=== PATIENT | female | born 1955 | race Caucasian/White ===

== ENCOUNTER → 2019-06-30 | Outpatient (CLI) | payer MEDICARE, BC ==
[2019-06-30] VITALS (11 sets, daily range): BP systolic 118–163; BP diastolic 59–73
[~2019-06-30] VITALS: Ht 157.5 cm; Wt 90.7 kg
[~2019-06-30] MED LIST: CEFD300C PO; CHOL10003 PO; HEPARIN for IV BOLUS 10,000 UNIT/10 ML VIAL. ONE; IODIXANOL 320 MG/ML 100 ML VIAL. IART ONE; IODIXANOL 320 MG/ML 100 ML VIAL. ONE; IV 1/2 NORMAL SALINE 1,000 ML IV SCH; LIDOCAINE 1% Multi-Dose 20 ML VIAL. INJ ONE; LIDOCAINE 1% Multi-Dose 20 ML VIAL. ONE; METF850T8 PO; MIDAZOLAM HCL/PF 2 MG/2 ML VIAL. IV ONE; MIDAZOLAM HCL/PF 2 MG/2 ML VIAL. ONE; MOME15CR13 TP; MULT-505 PO; NITROGLYCERIN SUBLINGUAL 0.4 MG BOTTLE OF 25. SL PRN; OMEG1CAP6 PO; PIOG45TA40 PO; RED600CA2 PO; VITA0.4T7 PO; fentaNYL PF VIAL 100 MCG/2 ML VIAL IV ONE; fentaNYL PF VIAL 100 MCG/2 ML VIAL ONE
[2019-06-30 07:53] LABS: RED BLOOD COUNT 4.49 x10^6/uL (3.50-5.40); RED CELL DISTRIBUTION WIDTH 13.6 % (11.5-14.5); WHITE BLOOD COUNT 11.2 x10^3/uL (4.0-11.0)
[2019-06-30 08:00] LABS: CALCIUM 9.2 mg/dL (8.5-10.1); CREATININE 0.7 mg/dL (0.6-1.0); GFR 84.2; POTASSIUM 4.1 mmol/L (3.5-5.1)
[2019-06-30 08:06] LABS: PROTHROMBIN TIME PATIENT 11.9 SEC (11.7-14.0)
--- NOTE | 2019-06-30 10:12 | PDOC ---
MODERATE SEDATION ASSESSMENT RISKS/ALTERNATIVES Risks/Alternatives Risks and alternatives of this type of sedation and procedure discussed with: RISK/ALTERNATIVES: Patient H & P ON CHART H & P H & P on chart and reviewed for co-morbid conditions and appropriate labs. H&P ON CHART: Yes STATUS PREG STATUS ASSESSED: N/A MEDS/ALLERGIES REVIEWED Meds/Allergies Reviewed Medications and Allergies including time and route of recently administered narcotics and sedatives. MEDS/ALLERGIES REVIEWED: Yes ASA RATING ASA RATING: II AIRWAY ASSESSMENT Airway Assessment Airway patency, oral function limitations, presence of caps, crowns, dentures, partials, and ability to extend neck assessed. AIRWAY ASSESSMENT: Yes MALLAMPATI SCORE MALLAMPATI SCORE: II PRE-SEDATION ASSESSMENT PRE-SEDATION ASSESSMENT: Yes SALINA HARPER MD Jun 30, 2019 10:12
--- NOTE | 2019-06-30 10:22 | CARD ---
MR#: [id number] Date of Study: 06/30/2019 Ordering Physician: SALINA HARPER, Referring Physician: SALINA HARPER Tech: BENSON PADILLA RTR APPROVED REPORT Patient StatusOUT-PATIENT Jewelry Technician: BENSON PADILLA RTR Procedure(s) performed: Aortogram with bilateral lower extremity runoff peripheral artery disease wit h claudication MODERATE SEDATION TIME: 31 MINS FLUORO TIME: 3.9 MIN DOSE: 153 GYCM2 CONTRAST: 84 INDICATION FOR PROCEDURE The indication(s) include : Claudication and abnormal arterial duplex scan. PROCEDURE NARRATIVE After explaining the risks, benefits and alternative options, informed consent was obtained from eric ent. Patient was brought to the cardiac [facility] and her left groin was prepped and draped in the usu al fashion. 20 mL of 2% lidocaine was infiltrated into the skin and subcutaneous tissues for local an esthesia. Arterial access was obtained in the left common femoral artery and 6 Panamanian 23 cm bright ti p sheath was inserted. A 5 Panamanian pigtail catheter was used to perform aortogram with bilateral lower extremity runoff. Patient tolerated the procedure well. Hemostasis was achieved using Angio-Seal. Th ere were no immediate complications. The following findings were noted. FINDINGS 1. 30-40% stenosis in the descending aorta without any significant gradient across the lesion. Infra renal abdominal aortic aneurysm was noted. 2. No significant stenosis involving bilateral common and external iliac arteries. 3. No significant stenosis involving bilateral common femoral arteries. 4. Minimal luminal irregularities without any significant stenosis in bilateral superficial femoral arteries. 5. No significant stenosis involving bilateral popliteal arteries. 6. There is two-vessel runoff below the knee right lower extremity. The posterior tibial artery show ed chronic total occlusion in the proximal to midsegment. 7. There is one vessel runoff below the knee left lower extremity with chronic total occlusion of le ft posterior tibial artery in the proximal segment and anterior tibial artery in the proximal to mids egment. Conclusion Below the knee peripheral vascular disease as noted above without any major vascular stenosis needing intervention. Infrarenal abdominal aortic aneurysm. Recommendations Vascular risk factor modification and regular exercise regimen Consider CTA for exact measurement of the abdominal aortic aneurysm size. Signed by : Salina Harper, Electronically Approved : 06/30/2019 10:22:30
--- NOTE | 2019-06-30 12:34 | NUR ---
Discharge Note: HANNAH WHITTAKER Discharge instructions and discharge home medications reviewed with Patient and a copy given. All questions have been answered and understanding verbalized. The following instructions and handouts were given: Follow up appointment with Dr. Guerrero on 07/15/19 @ 3769. Education about smoking cessation, moderate sedation, and groin site care. Discontinued lines and drains: right forarm IV removed and dressing applied. Patient discharged home, accompanied by friend.
--- NOTE | 2019-06-30 13:53 | CARD ---
MR#: [id number] Date of Study: 06/30/2019 Ordering Physician: SALINA GUERRERO, Referring Physician: SALINA GUERRERO Tech: Gina Chahal RDCS APPROVED REPORT EXAM: Two-dimensional and M-mode echocardiogram with Doppler and color Doppler. Other Information Quality : Technically LimitedHR: 98bpm Rhythm : NSRTechnically limited study due to body habitus. INDICATION PAD 2D DIMENSIONS RVDd3.0 (2.9-3.5cm)Left Atrium(2D)3.1 (1.6-4.0cm) IVSd1.1 (0.7-1.1cm)Aortic Root(2D)2.5 (2.0-3.7cm) LVDd4.2 (3.9-5.9cm)LVOT Diameter2.0 (1.8-2.4cm) PWd1.2 (0.7-1.1cm)LVDs2.8 (2.5-4.0cm) FS (%) 32.8 %SV47.3 ml LVEF(%)61.6 (>50%) M-Mode DIMENSIONS Left Atrium(MM)3.21 (2.5-4.0cm)Aortic Root2.89 (2.2-3.7cm) Aortic Valve AoV Peak Javier.130.4cm/sAoV VTI25.9cm AO Peak GR.6.8mmHgLVOT Peak Javier.118.1cm/s AO Mean GR.4mmHgAVA (VMAX)2.92cm2 MAYITO (VTI)2.90cm2 Mitral Valve MV E Xvwykmwf18.4cm/sMV DECEL EJUY71rf MV A Wczcedbi47.1cm/sE/A Ratio0.8 Pulmonary Valve PV Peak Ywmmwvws74.9cm/s LEFT VENTRICLE The left ventricle is normal size. There is mild concentric left ventricular hypertrophy. The left ve ntricular systolic function is normal. The Ejection Fraction is 60-65%. There is normal LV segmental wall motion. Transmitral Doppler flow pattern is Grade I-abnormal relaxation pattern. RIGHT VENTRICLE The right ventricle is normal size. There is normal right ventricular wall thickness. The right ventr icular systolic function is normal. ATRIA The left atrium size is normal. The right atrium size is normal. The interatrial septum is intact wit h no evidence for an atrial septal defect or patent foramen ovale as noted on 2-D or Doppler imaging. AORTIC VALVE The aortic valve is probably trileaflet. The aortic valve is not well visualized. Doppler and Color F low revealed no significant aortic regurgitation. There is no significant aortic valvular stenosis. MITRAL VALVE The mitral valve is normal in structure and function. There is no evidence of mitral valve prolapse. There is no mitral valve stenosis. Doppler and Color-flow revealed trace mitral regurgitation. TRICUSPID VALVE The tricuspid valve is normal in structure and function. Doppler and Color Flow revealed no tricuspid valve regurgitation noted. There is no tricuspid valve prolapse or vegetation. There is no tricuspid valve stenosis. PULMONIC VALVE The pulmonic valve is not well visualized. GREAT VESSELS The aortic root is normal in size. The ascending aorta is normal in size. The IVC is normal in size a nd collapses >50% with inspiration. PERICARDIAL EFFUSION There is no evidence of significant pericardial effusion. Critical Notification Critical Value: No <Conclusion> The left ventricular systolic function is normal. The Ejection Fraction is 60-65%. There is normal LV segmental wall motion. Transmitral Doppler flow pattern is Grade I-abnormal relaxation pattern. Doppler and Color-flow revealed trace mitral regurgitation. There is no evidence of significant pericardial effusion. Signed by : Salina Guerrero, Electronically Approved : 06/30/2019 13:52:34
== END ==
LOC: CCL 07:27
PROVIDERS: ATTEND Internal Medicine Cardiovascular Disease
DX: I71.4 Abdominal aortic aneurysm, without rupture (principal); I70.213 Atherosclerosis of native arteries of extremities with intermittent claudication, bilateral legs
CPT/HCPCS: 36200; 36415; 75630; 80048; 85027; 85610; 93306; 99152; 99153; C1760; C1769; C1894; J1644; J2250; J3010; Q9967; G0269; C1771

== ENCOUNTER 2019-07-27 18:15 | Inpatient (IN) | payer MEDICARE, BC ==
[~2019-07-27] VITALS: Ht 157.5 cm; Wt 98.0 kg
[~2019-07-27 18:15] MED LIST changes: -CEFD300C PO; -HEPARIN for IV BOLUS 10,000 UNIT/10 ML VIAL. ONE; -IODIXANOL 320 MG/ML 100 ML VIAL. IART ONE; -IODIXANOL 320 MG/ML 100 ML VIAL. ONE; -IV 1/2 NORMAL SALINE 1,000 ML IV SCH; -LIDOCAINE 1% Multi-Dose 20 ML VIAL. INJ ONE; -LIDOCAINE 1% Multi-Dose 20 ML VIAL. ONE; -MIDAZOLAM HCL/PF 2 MG/2 ML VIAL. IV ONE; -MIDAZOLAM HCL/PF 2 MG/2 ML VIAL. ONE; -MOME15CR13 TP; -NITROGLYCERIN SUBLINGUAL 0.4 MG BOTTLE OF 25. SL PRN; -fentaNYL PF VIAL 100 MCG/2 ML VIAL IV ONE; -fentaNYL PF VIAL 100 MCG/2 ML VIAL ONE
[2019-07-27] MEDS ORDERED: VANCOMYCIN PER PHARMACY MC ONE (19:00)
--- NOTE | 2019-07-27 19:04 | PHYS DOC ---
Adult General Chief Complaint Chief Complaint: CELLULITIS HPI HPI Patient is a 64-year-old female who presents with report of diffuse rash as well as redness, swelling and pain to her right lower leg. Patient has been treated with Bactrim for the last week for cellulitis but it is not improving. Patient states that she noted the diffuse rash a little bit before starting the Bactrim but it has gotten much worse, covering the majority of her body. She denies any chest pain or shortness of breath. She rates pain in that lower leg has moderate. She states that nothing is improving her symptoms.[] Review of Systems Review of Systems Constitutional: Denies fever or chills [] Respiratory: Denies cough or shortness of breath [] Cardiovascular: No additional information not addressed in HPI [] Musculoskeletal: Positive right lower leg swelling and pain [] Integument: Positive diffuse erythematous, macular rash. Right lower leg demonstrates soft tissue swelling, warmth and erythema, consistent with cellulitis[] Neurologic: Denies headache, focal weakness or sensory changes [] All other systems were reviewed and found to be within normal limits, except as documented in this note. Current Medications Current Medications Current Medications Medications (Trade) Dose Ordered Sig/Erin Start Time Stop Time Status Last Admin Dose Admin Vancomycin HCl (Vanco Per Pharmacy) 1 each 1X ONCE 07/27/19 19:00 07/27/19 19:06 DC Vancomycin HCl 2 gm/Sodium Chloride 500 ml @ 250 mls/hr 1X ONCE 07/27/19 19:30 07/27/19 21:29 07/27/19 19:35 250 MLS/HR Allergies Allergies Allergies Coded Allergies Type Severity Reaction Last Updated Verified Penicillins Allergy Unknown 06/30/19 Yes Tetanus Vaccines and Toxoid Allergy Unknown 06/30/19 Yes Physical Exam Physical Exam Constitutional: Well developed, well nourished, no acute distress, non-toxic appearance. [] HENT: Normocephalic, atraumatic, bilateral external ears normal, oropharynx moist, no oral exudates, nose normal. [] Eyes: PERRLA, EOMI, conjunctiva normal, no discharge. [] Neck: Normal range of motion, no tenderness, supple, no stridor. [] Cardiovascular: Regular rate and rhythm[] Lungs & Thorax: Bilateral breath sounds clear to auscultation [] Abdomen: Bowel sounds normal, soft, no tenderness. [] Skin: Warm, dry, diffuse erythematous macular rash that blanches. Right lower leg demonstrates soft tissue swelling, warmness and erythema consistent with cellulitis. [] Extremities: No cyanosis, no clubbing, ROM intact. [] Neurologic: Alert and oriented X 3, no focal deficits noted. [] Current Patient Data Vital Signs Vital Signs Date Time Temp Pulse Resp B/P (MAP) Pulse Ox O2 Delivery O2 Flow Rate FiO2 07/27/19 18:42 98.4 112 18 168/72 (104) 93 Room Air 98.4 Lab Values Laboratory Tests Test 07/27/19 19:05 White Blood Count 8.3 x10^3/uL (4.0-11.0) Red Blood Count 3.99 x10^6/uL (3.50-5.40) Hemoglobin 13.2 g/dL (12.0-15.5) Hematocrit 38.6 % (36.0-47.0) Mean Corpuscular Volume 97 fL (79-100) Mean Corpuscular Hemoglobin 33 pg (25-35) Mean Corpuscular Hemoglobin Concent 34 g/dL (31-37) Red Cell Distribution Width 13.2 % (11.5-14.5) Platelet Count 261 x10^3/uL (140-400) Neutrophils (%) (Auto) 62 % (31-73) Lymphocytes (%) (Auto) 24 % (24-48) Monocytes (%) (Auto) 9 % (0-9) Eosinophils (%) (Auto) 5 % (0-3) H Basophils (%) (Auto) 1 % (0-3) Neutrophils # (Auto) 5.1 x10^3/uL (1.8-7.7) Lymphocytes # (Auto) 2.0 x10^3/uL (1.0-4.8) Monocytes # (Auto) 0.7 x10^3/uL (0.0-1.1) Eosinophils # (Auto) 0.4 x10^3/uL (0.0-0.7) Basophils # (Auto) 0.1 x10^3/uL (0.0-0.2) Erythrocyte Sedimentation Rate 38 (0-25) H Sodium Level 142 mmol/L (136-145) Potassium Level 4.1 mmol/L (3.5-5.1) Chloride Level 102 mmol/L (98-107) Carbon Dioxide Level 27 mmol/L (21-32) Anion Gap 13 (6-14) Blood Urea Nitrogen 14 mg/dL (7-20) Creatinine 1.1 mg/dL (0.6-1.0) H Estimated GFR (Cockcroft-Gault) 50.0 BUN/Creatinine Ratio 13 (6-20) Glucose Level 178 mg/dL (70-99) H Lactic Acid Level 2.1 mmol/L (0.4-2.0) H Calcium Level 9.5 mg/dL (8.5-10.1) Total Bilirubin 0.2 mg/dL (0.2-1.0) Aspartate Amino Transferase (AST) 35 U/L (15-37) Alanine Aminotransferase (ALT) 65 U/L (14-59) H Alkaline Phosphatase 95 U/L (46-116) C-Reactive Protein, Quantitative 3.0 mg/L (0-3.3) Total Protein 7.2 g/dL (6.4-8.2) Albumin 3.6 g/dL (3.4-5.0) Albumin/Globulin Ratio 1.0 (1.0-1.7) Laboratory Tests 07/27/19 19:05 Laboratory Tests 07/27/19 19:05 EKG EKG [] Radiology/Procedures Radiology/Procedures [] Course & Med Decision Making Course & Med Decision Making Pertinent Labs and Imaging studies reviewed. (See chart for details) [] Dragon Disclaimer Dragon Disclaimer This electronic medical record was generated, in whole or in part, using a voice recognition dictation system. Departure Departure Impression: Primary Impression: Cellulitis of right lower leg Disposition: ADMITTED INPATIENT Admitting Physician: LISET (Dr. Lay) Condition: IMPROVED Referrals: JODI CROCKER (PCP) LORRAINE PUTNAM Jr. DO Jul 27, 2019 19:04
[2019-07-27 19:18] LABS: BASO # 0.1 x10^3/uL (0.0-0.2); BASO % 1 % (0-3); EOS # 0.4 x10^3/uL (0.0-0.7); EOS % 5 % (0-3); HEMATOCRIT 38.6 % (36.0-47.0); HEMOGLOBIN 13.2 g/dL (12.0-15.5); LYMPH % 24 % (24-48); MEAN CORPUSCULAR HEMOGLOBIN 33 pg (25-35); MEAN CORPUSCULAR HGB CONC 34 g/dL (31-37); MEAN CORPUSCULAR VOLUME 97 fL (79-100); MONO # 0.7 x10^3/uL (0.0-1.1); MONO % 9 % (0-9); NEUT # 5.1 x10^3/uL (1.8-7.7); NEUT % 62 % (31-73); PLATELET COUNT 261 x10^3/uL (140-400); RED BLOOD COUNT 3.99 x10^6/uL (3.50-5.40); RED CELL DISTRIBUTION WIDTH 13.2 % (11.5-14.5); WHITE BLOOD COUNT 8.3 x10^3/uL (4.0-11.0)
[2019-07-27] MEDS ORDERED: VANCOMYCIN 2 GM in IV NORMAL SALINE 500ML BAG 500 ML IV ONE (19:30)
[2019-07-27 20:02] LABS: CALCIUM 9.5 mg/dL (8.5-10.1); CREATININE 1.1 mg/dL (0.6-1.0); POTASSIUM 4.1 mmol/L (3.5-5.1)
[2019-07-27 20:08] LABS: ALBUMIN 3.6 g/dL (3.4-5.0); TOTAL BILIRUBIN 0.2 mg/dL (0.2-1.0); TOTAL PROTEIN 7.2 g/dL (6.4-8.2)
[2019-07-27] MEDS ORDERED: ONDANSETRON PF 4 MG/2 ML VIAL. IV PRN (21:15)
[2019-07-27] MEDS ORDERED: MORPHINE SULFATE 4 MG/ML VIAL. IV PRN (21:15)
[2019-07-27 21:56] LABS: BILIRUBIN,URINE SMALL (NEG); COLOR,URINE YELLOW; NITRITE,URINE NEGATIVE (NEG); PH,URINE 5.5; PROTEIN,URINE NEGATIVE (NEG-TRACE)
--- NOTE | 2019-07-27 21:58 | NUR ---
The patient, HANNAH WHITTAKER, 64 y/o, F admitted by KEIRY LY III, DO, was given written information regarding hospital policies, unit procedures and contact persons. Valuables were checked and left with her.
[2019-07-27 22:02] LABS: CLARITY,URINE CLEAR; SQUAMOUS EPITHELIAL CELL,UR MOD /LPF
[2019-07-27 22:03] LABS: BACTERIA,URINE FEW /HPF (0-FEW)
[2019-07-27 22:30] VITALS: BP 125/56
[2019-07-28] MEDS ORDERED: DEXTROSE 50% 25 GM / 50ML DISP.SYRIN. IV PRN ×2 (00:15→08:45)
[2019-07-28 03:00] VITALS: BP 124/82
[2019-07-28 04:58] LABS: BASO # 0.1 x10^3/uL (0.0-0.2); BASO % 1 % (0-3); EOS # 0.4 x10^3/uL (0.0-0.7); EOS % 5 % (0-3); HEMATOCRIT 37.4 % (36.0-47.0); HEMOGLOBIN 12.6 g/dL (12.0-15.5); LYMPH # 1.9 x10^3/uL (1.0-4.8); LYMPH % 25 % (24-48); MEAN CORPUSCULAR HEMOGLOBIN 33 pg (25-35); MEAN CORPUSCULAR HGB CONC 34 g/dL (31-37); MEAN CORPUSCULAR VOLUME 98 fL (79-100); MONO # 0.8 x10^3/uL (0.0-1.1); MONO % 11 % (0-9); NEUT # 4.4 x10^3/uL (1.8-7.7); NEUT % 58 % (31-73); PLATELET COUNT 253 x10^3/uL (140-400); RED BLOOD COUNT 3.82 x10^6/uL (3.50-5.40); RED CELL DISTRIBUTION WIDTH 13.6 % (11.5-14.5); WHITE BLOOD COUNT 7.5 x10^3/uL (4.0-11.0)
[2019-07-28 05:03] LABS: CALCIUM 8.6 mg/dL (8.5-10.1); CREATININE 0.8 mg/dL (0.6-1.0); GFR 72.2; POTASSIUM 4.2 mmol/L (3.5-5.1)
[2019-07-28 07:00] VITALS: BP 121/46
[2019-07-28] MEDS ORDERED: INSULIN LISPRO 300 UNITS/3 ML VIAL. SQ SCH (08:00)
--- NOTE | 2019-07-28 08:34 | PDOC1 ---
History and Physical Date of Admission Date of Admission DATE: 07/28/19 TIME: 08:31 Identification/Chief Complaint Chief Complaint Rash Source Source: Patient History of Present Illness History of Present Illness Ms Lockett 64-year-old female w/ PMHx smoker, DM2, HTN, psoriasis who presents with report of diffuse rash as well as redness, swelling and pain to her right lower leg. Patient has been treated with Bactrim for the last week for cellulitis but it is not improving. Patient states that she noted the diffuse rash a little bit before starting the Bactrim but it has gotten much worse, covering the majority of her body. She denies any chest pain or shortness of breath. She rates pain in that lower leg has moderate. She states that nothing is improving her symptoms She feels that her psoriasis has flared up on her right ankle and she has been pruritic and the redness and warmth appeared last week and she was placed on bactrim after which she developed a fine macular rash that is not pruritic. She had Cr 1.1, lactate 2.1 and AST slightly elevated Past Medical History Cardiovascular: HTN, Hyperlipidemia Pulmonary: No pertinent hx GI: No pertinent hx Heme/Onc: No pertinent hx Hepatobiliary: No pertinent hx Psych: No pertinent hx Rheumatologic: No pertinent hx Infectious disease: No pertinent hx ENT: No pertinent hx Renal/: No pertinent hx Endocrine: Diabetes Dermatology: No pertinent hx Past Surgical History Past Surgical History: No pertinent history Family History Family History: High Cholestrol, Hypertension Social History Smoke: 2 packs per day ALCOHOL: none Drugs: None Current Problem List Problem List Problems Medical Problems: (1) Cellulitis of right lower leg Status: Acute Current Medications Current Medications Current Medications Vancomycin HCl (Vanco Per Pharmacy) 1 each 1X ONCE MC ; Start 07/27/19 at 19:00; Stop 07/27/19 at 19:06; Status DC Vancomycin HCl 2 gm/Sodium Chloride 500 ml @ 250 mls/hr 1X ONCE IV Last administered on 07/27/19at 19:35; Start 07/27/19 at 19:30; Stop 07/27/19 at 21:29; Status DC Ondansetron HCl (Zofran) 4 mg PRN Q8HRS PRN IV NAUSEA/VOMITING 1ST CHOICE; Start 07/27/19 at 21:15; Stop 07/28/19 at 21:14 Morphine Sulfate (Morphine Sulfate) 4 mg PRN Q2HR PRN IV SEVERE PAIN 7-10; Start 07/27/19 at 21:15; Stop 07/28/19 at 21:14 Nicotine (Nicoderm Cq 21mg) 1 patch PRN DAILY PRN TD SMOKING CESSATION; Start 07/28/19 at 00:15 Nicotine Polacrilex (Nicorette Gum) 1 each PRN Q1HR PRN BC SMOKING CESSATION; Start 07/28/19 at 00:15 Insulin Human Lispro (HumaLOG) 0-5 UNITS TIDWMEALS SQ ; Start 07/28/19 at 08:00 Dextrose (Dextrose 50%-Water Syringe) 12.5 gm PRN Q15MIN PRN IV SEE COMMENTS; Start 07/28/19 at 00:15 Active Scripts Active Reported Fish Oil 1,000 Mg Capsule ([place]-3 Fatty Acids/Fish Oil) 1 Each Capsule 1 Each PO BID Red Yeast Rice 600 Mg Capsule 600 Mg PO DAILY Vitamin B-50 Complex Tablet (Vitamin B Complex/Folic Acid) 0.4 Mg Tablet 0.4 Mg PO DAILY Vitamin D3 (Cholecalciferol (Vitamin D3)) 1,000 Unit Tablet 2 Tab PO BID Once Daily (Multivitamin) 1 Each Tablet 1 Each PO DAILY Actos (Pioglitazone Hcl) 45 Mg Tablet 1 Tab PO DAILY Metformin Hcl 850 Mg Tablet 850 Mg PO TID Allergies Allergies: Coded Allergies: Penicillins (Verified Allergy, Intermediate, 07/27/19) Tetanus Vaccines and Toxoid (Verified Allergy, Intermediate, 07/27/19) ROS General: YES: Fatigue, Malaise; No: Chills, Night Sweats, Appetite, Other PSYCHOLOGICAL ROS: No: Anxiety, Behavioral Disorder, Concentration difficultie, Decreased libido, Depression, Disorientation, Hallucinations, Hostility, Irritablity, Memory difficulties, Mood Swings, Obsessive thoughts, Physical abuse, Sexual abuse, Sleep disturbances, Suicidal ideation, Other Eyes: No Blurry vision, No Decreased vision, No Double vision, No Dry eyes, No Excessive tearing, No Eye Pain, No Itchy Eyes, No Loss of vision, No Photophobia, No Scotomata, No Uses contacts, No Uses glasses, No Other HEENT: No: Heacaches, Visual Changes, Hearing change, Nasal congestion, Nasal discharge, Oral lesions, Sinus pain, Sore Throat, Epistaxis, Sneezing, Snoring, Tinnitus, Vertigo, Vocal changes, Other ALLERGY AND IMMUNOLOGY: No: Hives, Insect Bite Sensitivity, Itchy/Watery Eyes, Nasal Congestion, Post Nasal Drip, Seasonal Allergies, Other Hematological and Lymphatic: No: Bleeding Problems, Blood Clots, Blood Transfusions, Brusing, Night Sweats, Pallor, Swollen Lymph Nodes, Other ENDOCRINE: No: Breast Changes, Galactorrhea, Hair Pattern Changes, Hot Flashes, Malaise/lethargy, Mood Swings, Palpitations, Polydipsia/polyuria, Skin Changes, Temperature Intolerance, Unexpected Weight Changes, Other Breast: No New/Changing Breast Lumps, No Nipple changes, No Nipple discharge, No Other Respiratory: No: Cough, Hemoptysis, Orthopnea, Pleuritic Pain, Shortness of breath, SOB with excertion, Sputum Changes, Stridor, Tachypnea, Wheezing, Other Cardiovascular: No Chest Pain, No Palpitations, No Orthopnea, No Paroxysmal Noc. Dyspnea, No Edema, No Lt Headedness, No Other Gastrointestinal: No Nausea, No Vomiting, No Abdominal Pain, No Diarrhea, No Constipation, No Melena, No Hematochezia, No Other Genitourinary: No Dysuria, No Frequency, No Incontinence, No Hematuria, No Retention, No Discharge, No Urgency, No Pain, No Flank Pain, No Other, No , No , No , No , No , No , No Musculoskeletal: No Gait Disturbance, No Joint Pain, No Joint Stiffness, No Joint Swelling, No Muscle Pain, No Muscular Weakness, No Pain In:, No Swelling In:, No Other Neurological: No Behavorial Changes, No Bowel/Bladder ControlChng, No Confusion, No Dizziness, No Gait Disturbance, No Headaches, No Impaired Coord/balance, No Memory Loss, No Numbness/Tingling, No Seizures, No Speech Problems, No Tremors, No Visual Changes, No Weakness, No Other Skin: Yes Dry Skin, Yes Rash; No Eczema, No Hair Changes, No Lumps, No Mole Changes, No Mottling, No Nail Changes, No Pruritus, No Skin Lesion Changes, No Other, No Acne Physical Exam General: Alert, Oriented X3, Cooperative, No acute distress HEENT: Atraumatic, PERRLA, EOMI, Mucous membr. moist/pink Lungs: Clear to auscultation, Normal air movement Heart: S1S2, RRR, no thrills, no rubs, no gallops, no murmurs Abdomen: Normal bowel sounds, Soft, No tenderness, No hepatosplenomegaly, No masses Skin: Other (Macular rash on bilateral LE. Right ankle with diffuse red rash, warm, skin blistered.) Neuro: Normal gait, Normal speech, Strength at 5/5 X4 ext, Normal tone, Sensation intact, Cranial nerves 3-12 NL, Reflexes 2+ Psych/Mental Status: Mental status NL, Mood NL Vitals Vitals Vital Signs Date Time Temp Pulse Resp B/P (MAP) Pulse Ox O2 Delivery O2 Flow Rate FiO2 07/28/19 07:00 97.7 84 18 121/46 (71) 92 97.7 07/27/19 22:00 Room Air Labs Labs Laboratory Tests Test 07/27/19 19:05 07/27/19 21:45 07/27/19 22:25 07/28/19 04:00 White Blood Count 8.3 x10^3/uL (4.0-11.0) 7.5 x10^3/uL (4.0-11.0) Red Blood Count 3.99 x10^6/uL (3.50-5.40) 3.82 x10^6/uL (3.50-5.40) Hemoglobin 13.2 g/dL (12.0-15.5) 12.6 g/dL (12.0-15.5) Hematocrit 38.6 % (36.0-47.0) 37.4 % (36.0-47.0) Mean Corpuscular Volume 97 fL (79-100) 98 fL (79-100) Mean Corpuscular Hemoglobin 33 pg (25-35) 33 pg (25-35) Mean Corpuscular Hemoglobin Concent 34 g/dL (31-37) 34 g/dL (31-37) Red Cell Distribution Width 13.2 % (11.5-14.5) 13.6 % (11.5-14.5) Platelet Count 261 x10^3/uL (140-400) 253 x10^3/uL (140-400) Neutrophils (%) (Auto) 62 % (31-73) 58 % (31-73) Lymphocytes (%) (Auto) 24 % (24-48) 25 % (24-48) Monocytes (%) (Auto) 9 % (0-9) 11 % (0-9) Eosinophils (%) (Auto) 5 % (0-3) 5 % (0-3) Basophils (%) (Auto) 1 % (0-3) 1 % (0-3) Neutrophils # (Auto) 5.1 x10^3/uL (1.8-7.7) 4.4 x10^3/uL (1.8-7.7) Lymphocytes # (Auto) 2.0 x10^3/uL (1.0-4.8) 1.9 x10^3/uL (1.0-4.8) Monocytes # (Auto) 0.7 x10^3/uL (0.0-1.1) 0.8 x10^3/uL (0.0-1.1) Eosinophils # (Auto) 0.4 x10^3/uL (0.0-0.7) 0.4 x10^3/uL (0.0-0.7) Basophils # (Auto) 0.1 x10^3/uL (0.0-0.2) 0.1 x10^3/uL (0.0-0.2) Erythrocyte Sedimentation Rate 38 (0-25) Sodium Level 142 mmol/L (136-145) 144 mmol/L (136-145) Potassium Level 4.1 mmol/L (3.5-5.1) 4.2 mmol/L (3.5-5.1) Chloride Level 102 mmol/L (98-107) 109 mmol/L (98-107) Carbon Dioxide Level 27 mmol/L (21-32) 26 mmol/L (21-32) Anion Gap 13 (6-14) 9 (6-14) Blood Urea Nitrogen 14 mg/dL (7-20) 16 mg/dL (7-20) Creatinine 1.1 mg/dL (0.6-1.0) 0.8 mg/dL (0.6-1.0) Estimated GFR (Cockcroft-Gault) 50.0 72.2 BUN/Creatinine Ratio 13 (6-20) Glucose Level 178 mg/dL (70-99) 140 mg/dL (70-99) Lactic Acid Level 2.1 mmol/L (0.4-2.0) 1.5 mmol/L (0.4-2.0) Calcium Level 9.5 mg/dL (8.5-10.1) 8.6 mg/dL (8.5-10.1) Total Bilirubin 0.2 mg/dL (0.2-1.0) Aspartate Amino Transf (AST/SGOT) 35 U/L (15-37) Alanine Aminotransferase (ALT/SGPT) 65 U/L (14-59) Alkaline Phosphatase 95 U/L (46-116) C-Reactive Protein, Quantitative 3.0 mg/L (0-3.3) Total Protein 7.2 g/dL (6.4-8.2) Albumin 3.6 g/dL (3.4-5.0) Albumin/Globulin Ratio 1.0 (1.0-1.7) Urine Collection Type Unknown Urine Color Yellow Urine Clarity Clear Urine pH 5.5 Urine Specific [place] 1.025 Urine Protein Negative mg/dL (NEG-TRACE) Urine Glucose (UA) Negative mg/dL (NEG) Urine Ketones (Stick) Negative mg/dL (NEG) Urine Blood Negative (NEG) Urine Nitrite Negative (NEG) Urine Bilirubin Small (NEG) Urine Urobilinogen Dipstick 1.0 mg/dL (0.2 mg/dL) Urine Leukocyte Esterase Small (NEG) Urine RBC 6-10 /HPF (0-2) Urine WBC 11-20 /HPF (0-4) Urine Squamous Epithelial Cells Mod /LPF Urine Bacteria Few /HPF (0-FEW) Urine Mucus Mod /LPF Test 07/28/19 08:12 Glucose (Fingerstick) 140 mg/dL (70-99) Laboratory Tests Test 07/27/19 19:05 07/27/19 21:45 07/27/19 22:25 07/28/19 04:00 White Blood Count 8.3 x10^3/uL (4.0-11.0) 7.5 x10^3/uL (4.0-11.0) Red Blood Count 3.99 x10^6/uL (3.50-5.40) 3.82 x10^6/uL (3.50-5.40) Hemoglobin 13.2 g/dL (12.0-15.5) 12.6 g/dL (12.0-15.5) Hematocrit 38.6 % (36.0-47.0) 37.4 % (36.0-47.0) Mean Corpuscular Volume 97 fL (79-100) 98 fL (79-100) Mean Corpuscular Hemoglobin 33 pg (25-35) 33 pg (25-35) Mean Corpuscular Hemoglobin Concent 34 g/dL (31-37) 34 g/dL (31-37) Red Cell Distribution Width 13.2 % (11.5-14.5) 13.6 % (11.5-14.5) Platelet Count 261 x10^3/uL (140-400) 253 x10^3/uL (140-400) Neutrophils (%) (Auto) 62 % (31-73) 58 % (31-73) Lymphocytes (%) (Auto) 24 % (24-48) 25 % (24-48) Monocytes (%) (Auto) 9 % (0-9) 11 % (0-9) Eosinophils (%) (Auto) 5 % (0-3) 5 % (0-3) Basophils (%) (Auto) 1 % (0-3) 1 % (0-3) Neutrophils # (Auto) 5.1 x10^3/uL (1.8-7.7) 4.4 x10^3/uL (1.8-7.7) Lymphocytes # (Auto) 2.0 x10^3/uL (1.0-4.8) 1.9 x10^3/uL (1.0-4.8) Monocytes # (Auto) 0.7 x10^3/uL (0.0-1.1) 0.8 x10^3/uL (0.0-1.1) Eosinophils # (Auto) 0.4 x10^3/uL (0.0-0.7) 0.4 x10^3/uL (0.0-0.7) Basophils # (Auto) 0.1 x10^3/uL (0.0-0.2) 0.1 x10^3/uL (0.0-0.2) Erythrocyte Sedimentation Rate 38 (0-25) Sodium Level 142 mmol/L (136-145) 144 mmol/L (136-145) Potassium Level 4.1 mmol/L (3.5-5.1) 4.2 mmol/L (3.5-5.1) Chloride Level 102 mmol/L (98-107) 109 mmol/L (98-107) Carbon Dioxide Level 27 mmol/L (21-32) 26 mmol/L (21-32) Anion Gap 13 (6-14) 9 (6-14) Blood Urea Nitrogen 14 mg/dL (7-20) 16 mg/dL (7-20) Creatinine 1.1 mg/dL (0.6-1.0) 0.8 mg/dL (0.6-1.0) Estimated GFR (Cockcroft-Gault) 50.0 72.2 BUN/Creatinine Ratio 13 (6-20) Glucose Level 178 mg/dL (70-99) 140 mg/dL (70-99) Lactic Acid Level 2.1 mmol/L (0.4-2.0) 1.5 mmol/L (0.4-2.0) Calcium Level 9.5 mg/dL (8.5-10.1) 8.6 mg/dL (8.5-10.1) Total Bilirubin 0.2 mg/dL (0.2-1.0) Aspartate Amino Transf (AST/SGOT) 35 U/L (15-37) Alanine Aminotransferase (ALT/SGPT) 65 U/L (14-59) Alkaline Phosphatase 95 U/L (46-116) C-Reactive Protein, Quantitative 3.0 mg/L (0-3.3) Total Protein 7.2 g/dL (6.4-8.2) Albumin 3.6 g/dL (3.4-5.0) Albumin/Globulin Ratio 1.0 (1.0-1.7) Urine Collection Type Unknown Urine Color Yellow Urine Clarity Clear Urine pH 5.5 Urine Specific [place] 1.025 Urine Protein Negative mg/dL (NEG-TRACE) Urine Glucose (UA) Negative mg/dL (NEG) Urine Ketones (Stick) Negative mg/dL (NEG) Urine Blood Negative (NEG) Urine Nitrite Negative (NEG) Urine Bilirubin Small (NEG) Urine Urobilinogen Dipstick 1.0 mg/dL (0.2 mg/dL) Urine Leukocyte Esterase Small (NEG) Urine RBC 6-10 /HPF (0-2) Urine WBC 11-20 /HPF (0-4) Urine Squamous Epithelial Cells Mod /LPF Urine Bacteria Few /HPF (0-FEW) Urine Mucus Mod /LPF Test 07/28/19 08:12 Glucose (Fingerstick) 140 mg/dL (70-99) VTE Prophylaxis Ordered VTE Prophylaxis Devices: No VTE Pharmacological Prophylaxi: Yes Assessment/Plan Assessment/Plan A/P: Right ankle Cellulitis - no obvious abscess. She has failed outpatient oral therapy with bactrim. Admit for IV vancomycin + ancef CALVIN - likely vasomotor from nausea associated with bactrim therapy. DM2 - metformin, sliding scale HTN - cont meds Smoker - counseled on cessation, will place nicotine patch Psoriasis - she is using a veterinary itch spray I have advised against this. Vitamin D analogs SANDRA NELSON MD Jul 28, 2019 08:34
--- NOTE | 2019-07-28 08:38 | NUR ---
Wound Care Wound care consult for R ankle cellulitis. Pt has dry scaly patch on R ant ankle that she states is psoriasis related. No open areas noted and pt refuses any ointment or lotions to be applied. WC will sign off at this time. Please reconsult if new wounds develop
[2019-07-28] MEDS ORDERED: ceFAZolin SODIUM 1 GM in IV DEXTROSE 5% 50 ML IV SCH (08:45)
[2019-07-28] MEDS ORDERED: RED YEAST RICE 600 MG PO SCH (09:00)
[2019-07-28] MEDS: VITAMIN B COMPLEX TABLET. PO SCH (09:19)
[2019-07-28] MEDS: MULTIVITAMIN with MINERAL TABLET. PO SCH (09:19)
[2019-07-28] MEDS: OMEGA-3 FATTY ACIDS/FISH OIL 1,000 MG CAPSULE. PO SCH ×2 (09:19→21:08)
[2019-07-28] MEDS: NICOTINE 21MG PATCH. TD PRN (09:19)
[2019-07-28] MEDS: CHOLECALCIFEROL (VITAMIN D3) 1,000 UNIT TABLET PO SCH ×2 (09:20→21:08)
[2019-07-28] MEDS: metFORMIN 850 MG TABLET PO SCH ×3 (09:20→17:39)
[2019-07-28] MEDS: PIOGLITAZONE 15 MG TABLET. PO SCH (09:20)
[2019-07-28] MEDS ORDERED: NICOTINE 21MG PATCH. TD SCH (10:00)
[2019-07-28] MEDS: ceFAZolin SODIUM IV Push 1 GM VIAL. IVP SCH ×3 (10:28→22:30)
[2019-07-28 11:00] VITALS: BP 121/46
[2019-07-28] MEDS: INSULIN LISPRO 300 UNITS/3 ML VIAL. SQ SCH ×3 (11:30→21:00)
[2019-07-28] MEDS: ENOXAPARIN 40 MG/0.4 ML SYRINGE. SQ SCH (13:57)
[2019-07-28] MEDS: VANCOMYCIN PER PHARMACY MC PRN (14:49)
--- NOTE | 2019-07-28 14:56 | NUR ---
Pharmacy Vancomycin Dosing Note S:Consulted to monitor and dose vancomycin started 07/27/19. O:HANNAH WHITTAKER is a 64 year old F with Abscess . Height: 5 feet, 2 inches Weight: 97.374455 kg [place] Body Weight: 50.10 Adjusted Body Weight: 68.86 Dosing Weight: Actual Other Antibiotics: CEFAZOLIN 07/27 - LABS: Last BUN: 16 Last Creatinine: 0.8 Creatinine Clearance: 77 mL/min Last WBC: 7.5 Last Procalcitonin: NO Tmax (past 24 hours): 99.2 Microbiology: 07/28 UCX, BCX PENDING I/O: 720/3 Drug Levels: Last level: on at Last dose given 07/27/19 at 1935 Vancomycin Dosing: Loading Dose: 2000 mg x1 Dosing Weight: Actual Target Trough: 10-20 A: Based on: WEIGHT, CRCL~77, PREVIOUS DOSING IN ED, P: 1. INITIATE Vancomycin 1500 mg IV q12h 2. Follow up Trough level on 07/30/19 at 0130 3. Pharmacy will continue to monitor, follow and adjust therapy as needed. YONIS TOLBERT [facility], 07/28/19 [id number]
[2019-07-28 15:00] VITALS: BP 167/64
[2019-07-28] MEDS: VANCOMYCIN 1.5 GM in IV NORMAL SALINE 500ML BAG 500 ML IV SCH (15:15)
--- NOTE | 2019-07-28 16:00 | NUR ---
SW following pt for dc planning. Chart reviewed. Pt lives at home with family. Pt seen by Wound care and they have signed off. SW will be available as needed.
[2019-07-28] MEDS: NICOTINE POLACRILEX 2MG GUM PACKAGE of 12. BC PRN (17:40)
[2019-07-28 19:00] VITALS: BP 147/66
[2019-07-28 23:00] VITALS: BP 172/70
[2019-07-29] MEDS: VANCOMYCIN 1.5 GM in IV NORMAL SALINE 500ML BAG 500 ML IV SCH ×2 (02:15→15:40)
[2019-07-29 03:00] VITALS: BP 138/52
[2019-07-29 04:56] LABS: CREATININE 0.9 mg/dL (0.6-1.0)
[2019-07-29] MEDS: ceFAZolin SODIUM IV Push 1 GM VIAL. IVP SCH (05:58)
[2019-07-29 07:00] VITALS: BP 155/59
[2019-07-29] MEDS: INSULIN LISPRO 300 UNITS/3 ML VIAL. SQ SCH ×4 (07:30→21:00)
[2019-07-29] MEDS: NICOTINE 21MG PATCH. TD PRN (08:09)
[2019-07-29] MEDS: MULTIVITAMIN with MINERAL TABLET. PO SCH (08:10)
[2019-07-29] MEDS: CHOLECALCIFEROL (VITAMIN D3) 1,000 UNIT TABLET PO SCH ×2 (08:10→21:26)
[2019-07-29] MEDS: metFORMIN 850 MG TABLET PO SCH ×3 (08:10→17:43)
[2019-07-29] MEDS: VITAMIN B COMPLEX TABLET. PO SCH (08:10)
[2019-07-29] MEDS: OMEGA-3 FATTY ACIDS/FISH OIL 1,000 MG CAPSULE. PO SCH ×2 (08:10→21:25)
[2019-07-29] MEDS: NICOTINE POLACRILEX 2MG GUM PACKAGE of 12. BC PRN (08:11)
[2019-07-29] MEDS: PIOGLITAZONE 15 MG TABLET. PO SCH (08:28)
--- NOTE | 2019-07-29 09:02 | PDOC ---
PROGRESS NOTES Chief Complaint Chief Complaint A/P: Right ankle Cellulitis - no obvious abscess. She has failed outpatient oral therapy with bactrim. Admit for IV vancomycin + ancef CALVIN - likely vasomotor from nausea associated with bactrim therapy. DM2 - metformin, sliding scale HTN - cont meds Smoker - counseled on cessation, will place nicotine patch Psoriasis - she is using a veterinary itch spray I have advised against this. Vitamin D analogs History of Present Illness History of Present Illness Ms Lockett 64-year-old female w/ PMHx smoker, DM2, HTN, psoriasis who presents with report of diffuse rash as well as redness, swelling and pain to her right lower leg. Patient has been treated with Bactrim for the last week for cellulitis but it is not improving. Patient states that she noted the diffuse rash a little bit before starting the Bactrim but it has gotten much worse, covering the majority of her body. She denies any chest pain or shortness of breath. She rates pain in that lower leg has moderate. She states that nothing is improving her symptoms She feels that her psoriasis has flared up on her right ankle and she has been pruritic and the redness and warmth appeared last week and she was placed on bactrim after which she developed a fine macular rash that is not pruritic. She had Cr 1.1, lactate 2.1 and AST slightly elevated. She is feeling minimally improved today. Notes this happens every year. Now notes a very plaque covered rough patch on her middle finger of her right hand, which was the finger she used to apply her salve she gets from the pet store. Plan: Consult ID, I am not making quick enough headway with her cellulitis Vitals Vitals Vital Signs Date Time Temp Pulse Resp B/P (MAP) Pulse Ox O2 Delivery O2 Flow Rate FiO2 07/29/19 07:00 97.8 90 19 155/59 (91) 92 Room Air 97.8 Physical Exam General: Alert, Oriented X3, Cooperative, No acute distress Abdomen: Normal bowel sounds, Soft, No tenderness, No hepatosplenomegaly, No masses Skin: Other (Macular rash on bilateral LE. Right ankle with diffuse red rash, warm, skin blistered.) Labs LABS Laboratory Tests Test 07/28/19 11:01 07/28/19 16:50 07/28/19 20:51 07/29/19 03:40 Glucose (Fingerstick) 138 mg/dL (70-99) 99 mg/dL (70-99) 144 mg/dL (70-99) Creatinine 0.9 mg/dL (0.6-1.0) Estimated GFR (Cockcroft-Gault) 63.0 Test 07/29/19 07:23 Glucose (Fingerstick) 136 mg/dL (70-99) Assessment and Plan Assessmemt and Plan Problems Medical Problems: (1) Cellulitis of right lower leg Status: Acute Comment Review of Relevant I have reviewed the following items brooke (where applicable) has been applied. Labs Laboratory Tests Test 07/27/19 19:05 07/27/19 21:45 07/27/19 22:25 07/28/19 04:00 White Blood Count 8.3 x10^3/uL (4.0-11.0) 7.5 x10^3/uL (4.0-11.0) Red Blood Count 3.99 x10^6/uL (3.50-5.40) 3.82 x10^6/uL (3.50-5.40) Hemoglobin 13.2 g/dL (12.0-15.5) 12.6 g/dL (12.0-15.5) Hematocrit 38.6 % (36.0-47.0) 37.4 % (36.0-47.0) Mean Corpuscular Volume 97 fL (79-100) 98 fL (79-100) Mean Corpuscular Hemoglobin 33 pg (25-35) 33 pg (25-35) Mean Corpuscular Hemoglobin Concent 34 g/dL (31-37) 34 g/dL (31-37) Red Cell Distribution Width 13.2 % (11.5-14.5) 13.6 % (11.5-14.5) Platelet Count 261 x10^3/uL (140-400) 253 x10^3/uL (140-400) Neutrophils (%) (Auto) 62 % (31-73) 58 % (31-73) Lymphocytes (%) (Auto) 24 % (24-48) 25 % (24-48) Monocytes (%) (Auto) 9 % (0-9) 11 % (0-9) Eosinophils (%) (Auto) 5 % (0-3) 5 % (0-3) Basophils (%) (Auto) 1 % (0-3) 1 % (0-3) Neutrophils # (Auto) 5.1 x10^3/uL (1.8-7.7) 4.4 x10^3/uL (1.8-7.7) Lymphocytes # (Auto) 2.0 x10^3/uL (1.0-4.8) 1.9 x10^3/uL (1.0-4.8) Monocytes # (Auto) 0.7 x10^3/uL (0.0-1.1) 0.8 x10^3/uL (0.0-1.1) Eosinophils # (Auto) 0.4 x10^3/uL (0.0-0.7) 0.4 x10^3/uL (0.0-0.7) Basophils # (Auto) 0.1 x10^3/uL (0.0-0.2) 0.1 x10^3/uL (0.0-0.2) Erythrocyte Sedimentation Rate 38 (0-25) Sodium Level 142 mmol/L (136-145) 144 mmol/L (136-145) Potassium Level 4.1 mmol/L (3.5-5.1) 4.2 mmol/L (3.5-5.1) Chloride Level 102 mmol/L (98-107) 109 mmol/L (98-107) Carbon Dioxide Level 27 mmol/L (21-32) 26 mmol/L (21-32) Anion Gap 13 (6-14) 9 (6-14) Blood Urea Nitrogen 14 mg/dL (7-20) 16 mg/dL (7-20) Creatinine 1.1 mg/dL (0.6-1.0) 0.8 mg/dL (0.6-1.0) Estimated GFR (Cockcroft-Gault) 50.0 72.2 BUN/Creatinine Ratio 13 (6-20) Glucose Level 178 mg/dL (70-99) 140 mg/dL (70-99) Lactic Acid Level 2.1 mmol/L (0.4-2.0) 1.5 mmol/L (0.4-2.0) Calcium Level 9.5 mg/dL (8.5-10.1) 8.6 mg/dL (8.5-10.1) Total Bilirubin 0.2 mg/dL (0.2-1.0) Aspartate Amino Transf (AST/SGOT) 35 U/L (15-37) Alanine Aminotransferase (ALT/SGPT) 65 U/L (14-59) Alkaline Phosphatase 95 U/L (46-116) C-Reactive Protein, Quantitative 3.0 mg/L (0-3.3) Total Protein 7.2 g/dL (6.4-8.2) Albumin 3.6 g/dL (3.4-5.0) Albumin/Globulin Ratio 1.0 (1.0-1.7) Urine Collection Type Unknown Urine Color Yellow Urine Clarity Clear Urine pH 5.5 Urine Specific [place] 1.025 Urine Protein Negative mg/dL (NEG-TRACE) Urine Glucose (UA) Negative mg/dL (NEG) Urine Ketones (Stick) Negative mg/dL (NEG) Urine Blood Negative (NEG) Urine Nitrite Negative (NEG) Urine Bilirubin Small (NEG) Urine Urobilinogen Dipstick 1.0 mg/dL (0.2 mg/dL) Urine Leukocyte Esterase Small (NEG) Urine RBC 6-10 /HPF (0-2) Urine WBC 11-20 /HPF (0-4) Urine Squamous Epithelial Cells Mod /LPF Urine Bacteria Few /HPF (0-FEW) Urine Mucus Mod /LPF Test 07/28/19 08:12 07/28/19 11:01 07/28/19 16:50 07/28/19 20:51 Glucose (Fingerstick) 140 mg/dL (70-99) 138 mg/dL (70-99) 99 mg/dL (70-99) 144 mg/dL (70-99) Test 07/29/19 03:40 07/29/19 07:23 Creatinine 0.9 mg/dL (0.6-1.0) Estimated GFR (Cockcroft-Gault) 63.0 Glucose (Fingerstick) 136 mg/dL (70-99) Laboratory Tests Test 07/28/19 11:01 07/28/19 16:50 07/28/19 20:51 07/29/19 03:40 Glucose (Fingerstick) 138 mg/dL (70-99) 99 mg/dL (70-99) 144 mg/dL (70-99) Creatinine 0.9 mg/dL (0.6-1.0) Estimated GFR (Cockcroft-Gault) 63.0 Test 07/29/19 07:23 Glucose (Fingerstick) 136 mg/dL (70-99) Microbiology 07/27/19 Blood Culture - Preliminary, Resulted NO GROWTH AFTER 1 DAY Medications Current Medications Vancomycin HCl (Vanco Per Pharmacy) 1 each 1X ONCE MC ; Start 07/27/19 at 19:00; Stop 07/27/19 at 19:06; Status DC Vancomycin HCl 2 gm/Sodium Chloride 500 ml @ 250 mls/hr 1X ONCE IV Last administered on 07/27/19at 19:35; Start 07/27/19 at 19:30; Stop 07/27/19 at 21:29; Status DC Ondansetron HCl (Zofran) 4 mg PRN Q8HRS PRN IV NAUSEA/VOMITING 1ST CHOICE; Start 07/27/19 at 21:15; Stop 07/28/19 at 21:14; Status DC Morphine Sulfate (Morphine Sulfate) 4 mg PRN Q2HR PRN IV SEVERE PAIN 7-10; Start 07/27/19 at 21:15; Stop 07/28/19 at 21:14; Status DC Nicotine (Nicoderm Cq 21mg) 1 patch PRN DAILY PRN TD SMOKING CESSATION Last administered on 07/29/19at 08:09; Start 07/28/19 at 00:15 Nicotine Polacrilex (Nicorette Gum) 1 each PRN Q1HR PRN BC SMOKING CESSATION Last administered on 07/29/19at 08:11; Start 07/28/19 at 00:15 Insulin Human Lispro (HumaLOG) 0-5 UNITS TIDWMEALS SQ ; Start 07/28/19 at 08:00; Stop 07/28/19 at 09:00; Status DC Dextrose (Dextrose 50%-Water Syringe) 12.5 gm PRN Q15MIN PRN IV SEE COMMENTS; Start 07/28/19 at 00:15; Status Cancel Vitamin D (Vitamin D3) 2,000 unit BID PO Last administered on 07/29/19at 08:10; Start 07/28/19 at 09:00 Metformin HCl (Glucophage) 850 mg TIDWMEALS PO Last administered on 07/29/19at 08:10; Start 07/28/19 at 09:00 Fish Oil (Fish Oil) 1,000 mg BID PO Last administered on 07/29/19at 08:10; Start 07/28/19 at 09:00 Multivitamins (Thera M Plus) 1 tab DAILY PO Last administered on 07/29/19at 08:10; Start 07/28/19 at 09:00 Pioglitazone HCl (Actos) 45 mg DAILY PO Last administered on 07/29/19at 08:28; Start 07/28/19 at 09:00 Non-Formulary Medication (Red Yeast Rice ) 600 mg DAILY PO ; Start 07/28/19 at 09:00; Status UNV Vitamin B Complex (Allen B) 1 tab DAILY PO Last administered on 07/29/19at 08:10; Start 07/28/19 at 09:00 Cefazolin Sodium 1 gm/Dextrose 50 ml @ 100 mls/hr Q8HRS IV ; Start 07/28/19 at 08:45; Status UNV Insulin Human Lispro (HumaLOG) 0-7 UNITS TIDACHC SQ ; Start 07/28/19 at 11:30 Dextrose (Dextrose 50%-Water Syringe) 12.5 gm PRN Q15MIN PRN IV SEE COMMENTS; Start 07/28/19 at 08:45 Cefazolin Sodium (Ancef) 1 gm Q8HRS IVP Last administered on 07/29/19at 05:58; Start 07/28/19 at 09:00 Nicotine (Nicoderm Cq 21mg) 1 patch DAILY TD Last administered on 07/28/19at 10:00; Start 07/28/19 at 10:00; Stop 07/28/19 at 15:27; Status DC Enoxaparin Sodium (Lovenox 40mg Syringe) 40 mg Q24H SQ Last administered on 07/28/19at 13:57; Start 07/28/19 at 11:00 Vancomycin HCl (Vanco Per Pharmacy) 1 each PRN DAILY PRN MC SEE COMMENTS Last administered on 07/28/19at 14:49; Start 07/28/19 at 13:15 Vancomycin HCl 1.5 gm/Sodium Chloride 500 ml @ 250 mls/hr Q12H IV Last administered on 07/29/19at 02:15; Start 07/28/19 at 14:00 Vancomycin HCl (Vancomycin Trough Level) 1 each 1X ONCE MC ; Start 07/30/19 at 01:30; Stop 07/30/19 at 01:31 Active Scripts Active Reported Fish Oil 1,000 Mg Capsule ([place]-3 Fatty Acids/Fish Oil) 1 Each Capsule 1 Each PO BID Red Yeast Rice 600 Mg Capsule 600 Mg PO DAILY Vitamin B-50 Complex Tablet (Vitamin B Complex/Folic Acid) 0.4 Mg Tablet 0.4 Mg PO DAILY Vitamin D3 (Cholecalciferol (Vitamin D3)) 1,000 Unit Tablet 2 Tab PO BID Once Daily (Multivitamin) 1 Each Tablet 1 Each PO DAILY Actos (Pioglitazone Hcl) 45 Mg Tablet 1 Tab PO DAILY Metformin Hcl 850 Mg Tablet 850 Mg PO TID Vitals/I & O Vital Sign - Last 24 Hours 07/28/19 07/28/19 07/28/19 07/28/19 11:00 15:00 19:00 19:30 Temp 97.7 97.6 98.0 97.7 97.6 98.0 Pulse 96 89 91 Resp B/P (MAP) 121/46 (71) 167/64 (98) 147/66 (93) Pulse Ox 92 94 92 O2 Delivery Room Air Room Air Room Air 07/28/19 07/29/19 07/29/19 23:00 03:00 07:00 Temp 97.5 97.9 97.8 97.5 97.9 97.8 Pulse 97 88 90 Resp B/P (MAP) 172/70 (104) 138/52 (80) 155/59 (91) Pulse Ox 90 90 92 O2 Delivery Room Air Room Air Room Air Intake and Output 07/28/19 07/28/19 07/29/19 14:59 22:59 06:59 Intake Total 500 ml 500 ml Balance 500 ml 500 ml SANDRA NELSON MD Jul 29, 2019 09:02
[2019-07-29 10:59] VITALS: BP 127/93
[2019-07-29] MEDS: ENOXAPARIN 40 MG/0.4 ML SYRINGE. SQ SCH (13:18)
[2019-07-29] MEDS: VANCOMYCIN PER PHARMACY MC PRN (13:51)
[2019-07-29 15:00] VITALS: BP 132/84
--- NOTE | 2019-07-29 15:08 | PDOC ---
Infectious Disease Note Vital Sign Vital Signs Vital Signs Date Time Temp Pulse Resp B/P (MAP) Pulse Ox O2 Delivery O2 Flow Rate FiO2 07/29/19 10:59 97.8 89 19 127/93 (104) 93 Room Air 97.8 Labs Lab Laboratory Tests Test 07/28/19 16:50 07/28/19 20:51 07/29/19 03:40 07/29/19 07:23 Glucose (Fingerstick) 99 mg/dL (70-99) 144 mg/dL (70-99) 136 mg/dL (70-99) Creatinine 0.9 mg/dL (0.6-1.0) Estimated GFR (Cockcroft-Gault) 63.0 Test 07/29/19 11:24 Glucose (Fingerstick) 98 mg/dL (70-99) Micro Microbiology 07/27/19 Blood Culture - Preliminary, Resulted NO GROWTH AFTER 1 DAY Objective Assessment pt seen, consult dictated Plan Plan of Care / PINA RESENDEZ MD Jul 29, 2019 15:08
[2019-07-29] MEDS ORDERED: cefTRIAXone IV Push 1 GM VIAL. IVP SCH (16:00)
[2019-07-29 19:00] VITALS: BP 157/98
[2019-07-29] MEDS: LACTOBACILLUS RHAMNOSUS GG 1 CAPSULE. PO SCH (21:26)
[2019-07-29 23:00] VITALS: BP 138/82
[2019-07-30 02:17] LABS: CREATININE 0.7 mg/dL (0.6-1.0); GFR 84.2; VANC TR 18.6 mcg/mL (10.0-20.0)
--- NOTE | 2019-07-30 02:24 | CONS ---
DATE OF CONSULTATION: 07/29/2019 REQUESTING PHYSICIAN: Dr. Hudson REASON FOR CONSULTATION: Cellulitis and allergic reaction. HISTORY OF PRESENT ILLNESS: This is a 64-year-old female with a history of what she calls psoriasis on both the ankles that is there for more than 20 years, off and on bothers her she says. The patient has been vague; although, she says she had seen a skin doctor 20 years ago and they tried everything and nothing worked so she stopped going to see any doctor. She now had applied all different types of creams and lotions and nothing worked except the dog itch spray that she uses to control the itch. Recently, the patient had an angiogram done on the leg and it turned out to be there was no need for any further intervention she says. The patient also was put on Bactrim, which she has taken in the past including last year without any problem, and apparently she broke out in rash; although at one point, she says she had started to have rash even before Bactrim was started. The patient's white count is normal. Creatinine is normal. The patient has been put on vancomycin and cefazolin and consult has been requested. The patient denies any fever, denies any nausea, vomiting, diarrhea. Denies any chest pain, shortness of breath, abdominal pain, or urinary symptoms. PAST MEDICAL HISTORY: Positive for diabetes mellitus, hypertension, hyperlipidemia and this diagnosis of psoriasis which is a very unusual place if that is really psoriasis, it may have been just eczema, but she has been given that diagnosis 20 years ago. SOCIAL HISTORY: Positive for smoking. No alcohol use or drug use. ALLERGIES: LISTED ALLERGIC TO PENICILLIN AND TETANUS TOXOID. REVIEW OF SYSTEMS: As per HPI, all other systems reviewed and are negative. PHYSICAL EXAMINATION: GENERAL: Alert, oriented female, not in any distress. VITAL SIGNS: Stable, afebrile. HEENT: Both pupils are round and reacting. No conjunctival lesion. No lesion in the mouth. NECK: Supple, no JVP, no lymphadenopathy. LUNGS: Clear. HEART: S1, S2 regular. ABDOMEN: Benign. EXTREMITIES: Left lower extremity is unremarkable. She does have a healed scar at the typical area of venous insufficiency at the medial and lateral ankle. The patient's right foot has extensive excoriation onto the anterior ankle including the lower part of the leg and the part of the foot with surrounding erythema. The patient also has another different rash all over the body, more so into the thigh, the abdomen, the back and into the legs. NEUROLOGIC: The patient neurologically alert, awake and appropriate. No focal neurologic deficit. LABORATORY DATA: White count is normal. Sed rate is 38. BUN and creatinine are normal. When she came in, lactic acid was 2.1. Urinalysis 11-20 wbc's, 6-10 rbc's. The patient had a femoral angiogram done last month, which showed [id number] peripheral vascular disease without any major vascular stenosis needing intervention. IMPRESSION: 1. Right ankle wound with excoriation, question psoriasis, could be eczema with secondary cellulitis in the surrounding area. 2. Rash all over the other part of the body, which may have been allergic reaction to something, although, Bactrim has been blamed. Bactrim the patient has taken last year without any problem and now the patient remembers that the rash had started even before Bactrim, who knows the dog anti-itch spray that she is using that may have caused allergic reaction or some other chemical she may be using since she applied some chemical through the finger and she has a dry scaly finger also. 3. Diabetes. 4. Hypertension. 5. Hyperlipidemia. RECOMMENDATIONS: Continue vancomycin, change cefazolin to Rocephin to improve gram-negative coverage. Supportive care, maybe Vaseline gauze to the area on the right ankle and we will continue to follow. Thank you very much Dr. Hudson for giving me the opportunity to participate in this complicated patient's care. The patient does need a medical detailist actually. PINA RESENDEZ MD DR: ALLEN/scooby JOB#: [id number] / [id number]
[2019-07-30] MEDS: VANCOMYCIN PER PHARMACY MC PRN ×2 (02:31→09:16)
--- NOTE | 2019-07-30 02:32 | NUR ---
Pharmacy Vancomycin Dosing Note S: Consulted to monitor and dose vancomycin started 07/27/19. O: HANNAH WHITTAKER is a 64 year old F with Cellulitis, . Other Antibiotics: CEFTRIAXONE 1GM IV Q24H (07/29- LABS: Last BUN: 16 Last Creatinine: 0.9 Creatinine Clearance: 88.7 mL/min Last WBC: 7.5 Last Procalcitonin: NO Tmax (past 24 hours): 98.0 Microbiology: 07/28 UCX PENDING, BCX NGTD I/O: 1000/ 2VOIDS Drug Levels: Last Trough level: 18.6 on 07/30/19 at 0130 Last dose given 07/29/19 at 1540 Vancomycin Dosing: Dosing Weight: Actual Target Trough: 10-20 A: Based on: Trough, Actual Wt and Improved CrCl P: 1. 07/30/19 Continue Vancomycin 1500 mg IV q12h 2. Follow up Trough level in 5 to 7 days as needed 3. Pharmacy will continue to monitor, follow and adjust therapy as needed. LYNDON AGUDELO RPH, 07/30/19 0232 Signed: 07/30/19 at 0233 by LYNDON AGUDELO RPH PHA
[2019-07-30 03:00] VITALS: BP 160/69
[2019-07-30] MEDS: VANCOMYCIN 1.5 GM in IV NORMAL SALINE 500ML BAG 500 ML IV SCH ×2 (03:13→14:00)
[2019-07-30 07:00] VITALS: BP 163/74
[2019-07-30] MEDS: INSULIN LISPRO 300 UNITS/3 ML VIAL. SQ SCH ×2 (07:30→11:30)
--- NOTE | 2019-07-30 08:33 | PDOC ---
PROGRESS NOTES Chief Complaint Chief Complaint A/P: Right ankle Cellulitis - no obvious abscess. She has failed outpatient oral therapy with bactrim. Admitted for IV vancomycin + ancef --> Cefdinir CALVIN - likely vasomotor from nausea associated with bactrim therapy. DM2 - metformin, sliding scale HTN - cont meds Smoker - counseled on cessation, will place nicotine patch Psoriasis - she is using a veterinary itch spray I have advised against this. Vitamin D analogs History of Present Illness History of Present Illness Ms Lockett 64-year-old female w/ PMHx smoker, DM2, HTN, psoriasis who presents with report of diffuse rash as well as redness, swelling and pain to her right lower leg. Patient has been treated with Bactrim for the last week for cellulitis but it is not improving. Patient states that she noted the diffuse rash a little bit before starting the Bactrim but it has gotten much worse, covering the majority of her body. She denies any chest pain or shortness of breath. She rates pain in that lower leg has moderate. She states that nothing is improving her symptoms She feels that her psoriasis has flared up on her right ankle and she has been pruritic and the redness and warmth appeared last week and she was placed on bactrim after which she developed a fine macular rash that is not pruritic. She had Cr 1.1, lactate 2.1 and AST slightly elevated. Seen by ID, changed to rocephin, then cefdinir with improvement She is feeling minimally improved today. Notes this happens every year. Now notes a very plaque covered rough patch on her middle finger of her right hand, which was the finger she used to apply her salve she gets from the pet store. Plan: Home on cefdinir and elocon cream Vitals Vitals Vital Signs Date Time Temp Pulse Resp B/P (MAP) Pulse Ox O2 Delivery O2 Flow Rate FiO2 07/30/19 07:00 98.2 87 18 163/74 (103) 91 98.2 07/30/19 03:00 Room Air Physical Exam General: Alert, Oriented X3, Cooperative, No acute distress Abdomen: Normal bowel sounds, Soft, No tenderness, No hepatosplenomegaly, No masses Skin: Other (Macular rash on bilateral LE. Right ankle with diffuse red rash, warm, skin blistered.) Labs LABS Laboratory Tests Test 07/29/19 11:24 07/29/19 16:09 07/29/19 21:15 07/30/19 01:45 Glucose (Fingerstick) 98 mg/dL (70-99) 98 mg/dL (70-99) 108 mg/dL (70-99) Creatinine 0.7 mg/dL (0.6-1.0) Estimated GFR (Cockcroft-Gault) 84.2 Vancomycin Level Trough 18.6 mcg/mL (10.0-20.0) Vancomycin Last Dose Date Vancomycin Last Dose Time Test 07/30/19 07:51 Glucose (Fingerstick) 125 mg/dL (70-99) Assessment and Plan Assessmemt and Plan Problems Medical Problems: (1) Cellulitis of right lower leg Status: Acute Comment Review of Relevant I have reviewed the following items brooke (where applicable) has been applied. Labs Laboratory Tests Test 07/28/19 11:01 07/28/19 16:50 07/28/19 20:51 07/29/19 03:40 Glucose (Fingerstick) 138 mg/dL (70-99) 99 mg/dL (70-99) 144 mg/dL (70-99) Creatinine 0.9 mg/dL (0.6-1.0) Estimated GFR (Cockcroft-Gault) 63.0 Test 07/29/19 07:23 07/29/19 11:24 07/29/19 16:09 07/29/19 21:15 Glucose (Fingerstick) 136 mg/dL (70-99) 98 mg/dL (70-99) 98 mg/dL (70-99) 108 mg/dL (70-99) Test 07/30/19 01:45 07/30/19 07:51 Creatinine 0.7 mg/dL (0.6-1.0) Estimated GFR (Cockcroft-Gault) 84.2 Vancomycin Level Trough 18.6 mcg/mL (10.0-20.0) Vancomycin Last Dose Date Vancomycin Last Dose Time Glucose (Fingerstick) 125 mg/dL (70-99) Laboratory Tests Test 07/29/19 11:24 07/29/19 16:09 07/29/19 21:15 07/30/19 01:45 Glucose (Fingerstick) 98 mg/dL (70-99) 98 mg/dL (70-99) 108 mg/dL (70-99) Creatinine 0.7 mg/dL (0.6-1.0) Estimated GFR (Cockcroft-Gault) 84.2 Vancomycin Level Trough 18.6 mcg/mL (10.0-20.0) Vancomycin Last Dose Date Vancomycin Last Dose Time Test 07/30/19 07:51 Glucose (Fingerstick) 125 mg/dL (70-99) Microbiology 07/27/19 Urine Culture - Final, Complete 07/27/19 Urine Culture Result 1 (JENNIFER) - Final, Complete 07/27/19 Blood Culture - Preliminary, Resulted NO GROWTH AFTER 2 DAYS Medications Current Medications Vancomycin HCl (Vanco Per Pharmacy) 1 each 1X ONCE MC ; Start 07/27/19 at 19:00; Stop 07/27/19 at 19:06; Status DC Vancomycin HCl 2 gm/Sodium Chloride 500 ml @ 250 mls/hr 1X ONCE IV Last administered on 07/27/19at 19:35; Start 07/27/19 at 19:30; Stop 07/27/19 at 21:29; Status DC Ondansetron HCl (Zofran) 4 mg PRN Q8HRS PRN IV NAUSEA/VOMITING 1ST CHOICE; Start 07/27/19 at 21:15; Stop 07/28/19 at 21:14; Status DC Morphine Sulfate (Morphine Sulfate) 4 mg PRN Q2HR PRN IV SEVERE PAIN 7-10; Start 07/27/19 at 21:15; Stop 07/28/19 at 21:14; Status DC Nicotine (Nicoderm Cq 21mg) 1 patch PRN DAILY PRN TD SMOKING CESSATION 1ST CHOICE Last administered on 07/29/19at 08:09; Start 07/28/19 at 00:15 Nicotine Polacrilex (Nicorette Gum) 1 each PRN Q1HR PRN BC SMOKING CESSATION 2ND CHOICE Last administered on 07/29/19at 08:11; Start 07/28/19 at 00:15 Insulin Human Lispro (HumaLOG) 0-5 UNITS TIDWMEALS SQ ; Start 07/28/19 at 08:00; Stop 07/28/19 at 09:00; Status DC Dextrose (Dextrose 50%-Water Syringe) 12.5 gm PRN Q15MIN PRN IV SEE COMMENTS; Start 07/28/19 at 00:15; Status Cancel Vitamin D (Vitamin D3) 2,000 unit BID PO Last administered on 07/29/19 21:26; Start 07/28/19 at 09:00 Metformin HCl (Glucophage) 850 mg TIDWMEALS PO Last administered on 07/29/19at 17:43; Start 07/28/19 at 09:00 Fish Oil (Fish Oil) 1,000 mg BID PO Last administered on 07/29/19 21:25; Start 07/28/19 at 09:00 Multivitamins (Thera M Plus) 1 tab DAILY PO Last administered on 07/29/19 08:10; Start 07/28/19 at 09:00 Pioglitazone HCl (Actos) 45 mg DAILY PO Last administered on 07/29/19 08:28; Start 07/28/19 at 09:00 Non-Formulary Medication (Red Yeast Rice ) 600 mg DAILY PO ; Start 07/28/19 at 09:00; Status UNV Vitamin B Complex (Allen B) 1 tab DAILY PO Last administered on 07/29/19at 08:10; Start 07/28/19 at 09:00 Cefazolin Sodium 1 gm/Dextrose 50 ml @ 100 mls/hr Q8HRS IV ; Start 07/28/19 at 08:45; Status UNV Insulin Human Lispro (HumaLOG) 0-7 UNITS TIDACHC SQ ; Start 07/28/19 at 11:30 Dextrose (Dextrose 50%-Water Syringe) 12.5 gm PRN Q15MIN PRN IV SEE COMMENTS; Start 07/28/19 at 08:45 Cefazolin Sodium (Ancef) 1 gm Q8HRS IVP Last administered on 07/29/19at 05:58; Start 07/28/19 at 09:00; Stop 07/29/19 at 15:08; Status DC Nicotine (Nicoderm Cq 21mg) 1 patch DAILY TD Last administered on 07/28/19at 10:00; Start 07/28/19 at 10:00; Stop 07/28/19 at 15:27; Status DC Enoxaparin Sodium (Lovenox 40mg Syringe) 40 mg Q24H SQ Last administered on 07/29/19at 13:18; Start 07/28/19 at 11:00 Vancomycin HCl (Vanco Per Pharmacy) 1 each PRN DAILY PRN MC SEE COMMENTS Last administered on 07/30/19at 02:31; Start 07/28/19 at 13:15 Vancomycin HCl 1.5 gm/Sodium Chloride 500 ml @ 250 mls/hr Q12H IV Last administered on 07/30/19at 03:13; Start 07/28/19 at 14:00 Vancomycin HCl (Vancomycin Trough Level) 1 each 1X ONCE MC Last administered on 07/30/19at 01:30; Start 07/30/19 at 01:30; Stop 07/30/19 at 01:31; Status DC Lactobacillus Rhamnosus (Culturelle) 1 cap BID PO Last administered on 07/29/19at 21:26; Start 07/29/19 at 21:00 Ceftriaxone Sodium (Rocephin) 1 gm Q24H IVP Last administered on 07/29/19at 15:32; Start 07/29/19 at 16:00 Active Scripts Active Reported Fish Oil 1,000 Mg Capsule ([place]-3 Fatty Acids/Fish Oil) 1 Each Capsule 1 Each PO BID Red Yeast Rice 600 Mg Capsule 600 Mg PO DAILY Vitamin B-50 Complex Tablet (Vitamin B Complex/Folic Acid) 0.4 Mg Tablet 0.4 Mg PO DAILY Vitamin D3 (Cholecalciferol (Vitamin D3)) 1,000 Unit Tablet 2 Tab PO BID Once Daily (Multivitamin) 1 Each Tablet 1 Each PO DAILY Actos (Pioglitazone Hcl) 45 Mg Tablet 1 Tab PO DAILY Metformin Hcl 850 Mg Tablet 850 Mg PO TID Vitals/I & O Vital Sign - Last 24 Hours 07/29/19 07/29/19 07/29/19 07/29/19 10:59 15:00 19:00 20:00 Temp 97.8 97.7 98.7 97.8 97.7 98.7 Pulse 89 88 97 Resp B/P (MAP) 127/93 (104) 132/84 (100) 157/98 (117) Pulse Ox 93 94 97 O2 Delivery Room Air Room Air Room Air Room Air 07/29/19 07/30/19 07/30/19 23:00 03:00 07:00 Temp 98.9 98.0 98.2 98.9 98.0 98.2 Pulse 87 93 87 Resp B/P (MAP) 138/82 (100) 160/69 (99) 163/74 (103) Pulse Ox 95 90 91 O2 Delivery Room Air Room Air Intake and Output 07/29/19 07/29/19 07/30/19 15:00 23:00 07:00 Intake Total 300 ml 300 ml 0 ml Output Total 600 ml Balance 300 ml -300 ml 0 ml SANDRA NELSON MD Jul 30, 2019 08:33
[2019-07-30] MEDS: VITAMIN B COMPLEX TABLET. PO SCH (08:46)
[2019-07-30] MEDS: metFORMIN 850 MG TABLET PO SCH ×2 (08:46→11:59)
[2019-07-30] MEDS: OMEGA-3 FATTY ACIDS/FISH OIL 1,000 MG CAPSULE. PO SCH (08:46)
[2019-07-30] MEDS: MULTIVITAMIN with MINERAL TABLET. PO SCH (08:46)
[2019-07-30] MEDS: CHOLECALCIFEROL (VITAMIN D3) 1,000 UNIT TABLET PO SCH (08:46)
[2019-07-30] MEDS: PIOGLITAZONE 15 MG TABLET. PO SCH (08:46)
[2019-07-30] MEDS: NICOTINE 21MG PATCH. TD PRN (08:47)
[2019-07-30] MEDS: ENOXAPARIN 40 MG/0.4 ML SYRINGE. SQ SCH (08:47)
[2019-07-30] MEDS: LACTOBACILLUS RHAMNOSUS GG 1 CAPSULE. PO SCH (08:47)
--- NOTE | 2019-07-30 10:51 | PDOC ---
Infectious Disease Note Subjective Subjective pt says she is feeling better, redness less ROS ROS no n/v/d/sob Vital Sign Vital Signs Vital Signs Date Time Temp Pulse Resp B/P (MAP) Pulse Ox O2 Delivery O2 Flow Rate FiO2 07/30/19 08:00 Room Air 07/30/19 07:00 98.2 87 18 163/74 (103) 91 98.2 Physical Exam PHYSICAL EXAM GENERAL: Alert, oriented female, not in any distress. VITAL SIGNS: Stable, afebrile. HEENT: Both pupils are round and reacting. No conjunctival lesion. No lesion in the mouth. NECK: Supple, no JVP, no lymphadenopathy. LUNGS: Clear. HEART: S1, S2 regular. ABDOMEN: Benign. EXTREMITIES: Left lower extremity is unremarkable. She does have a healed scar at the typical area of venous insufficiency at the medial and lateral ankle. The patient's right foot has extensive excoriation onto the anterior ankle including the lower part of the leg and the part of the foot with surrounding erythema. The patient also has another different rash all over the body, more so into the thigh, the abdomen, the back and into the legs. NEUROLOGIC: The patient neurologically alert, awake and appropriate. No focal neurologic deficit. Labs Lab Laboratory Tests Test 07/29/19 11:24 07/29/19 16:09 07/29/19 21:15 07/30/19 01:45 Glucose (Fingerstick) 98 mg/dL (70-99) 98 mg/dL (70-99) 108 mg/dL (70-99) Creatinine 0.7 mg/dL (0.6-1.0) Estimated GFR (Cockcroft-Gault) 84.2 Vancomycin Level Trough 18.6 mcg/mL (10.0-20.0) Vancomycin Last Dose Date Vancomycin Last Dose Time Test 07/30/19 07:51 Glucose (Fingerstick) 125 mg/dL (70-99) Micro Microbiology 07/27/19 Blood Culture - Preliminary, Resulted NO GROWTH AFTER 1 DAY Objective Assessment 1. Right ankle wound with excoriation, question psoriasis, could be eczema with secondary cellulitis in the surrounding area. 2. Rash all over the other part of the body, which may have been allergic reaction to something, although, Bactrim has been blamed. Bactrim the patient has taken last year without any problem and now the patient remembers that the rash had started even before Bactrim, who knows the dog anti-itch spray that she is using that may have caused allergic reaction or some other chemical she may be using since she applied some chemical through the finger and she has a dry scaly finger also. 3. Diabetes. 4. Hypertension. 5. Hyperlipidemia. Plan Plan of Care cont xeroform dressing on ankle redness improving can change iv to po cefdinir avoid using PET products steroid cream d/c ok f/u with Dermatology PINA RESENDEZ MD Jul 30, 2019 10:51
[2019-07-30 11:00] VITALS: BP 167/75
[2019-07-30] MEDS ORDERED: CEFD300C PO (14:00)
[2019-07-30] MEDS ORDERED: MOME15CR13 TP (14:00)
--- NOTE | 2019-07-30 14:49 | PDOC3 ---
Discharge Summary Visit Information Date of Admission: Jul 27, 2019 Date of Discharge: Jul 30, 2019 Admitting Diagnosis: RLE cellulitis Final Diagnosis Problems Medical Problems: (1) Cellulitis of right lower leg Status: Acute Brief Hospital Course Allergies Allergies Coded Allergies Type Severity Reaction Last Updated Verified Penicillins Allergy Intermediate 07/27/19 Yes Tetanus Vaccines and Toxoid Allergy Intermediate 07/27/19 Yes Vital Signs Vital Signs Date Time Temp Pulse Resp B/P (MAP) Pulse Ox O2 Delivery O2 Flow Rate FiO2 07/30/19 11:00 98.1 83 16 167/75 (105) 93 Room Air 98.1 Lab Results Laboratory Tests Test 07/28/19 16:50 07/28/19 20:51 07/29/19 03:40 07/29/19 07:23 Glucose (Fingerstick) 99 mg/dL (70-99) 144 mg/dL (70-99) 136 mg/dL (70-99) Creatinine 0.9 mg/dL (0.6-1.0) Estimated GFR (Cockcroft-Gault) 63.0 Test 07/29/19 11:24 07/29/19 16:09 07/29/19 21:15 07/30/19 01:45 Glucose (Fingerstick) 98 mg/dL (70-99) 98 mg/dL (70-99) 108 mg/dL (70-99) Creatinine 0.7 mg/dL (0.6-1.0) Estimated GFR (Cockcroft-Gault) 84.2 Vancomycin Level Trough 18.6 mcg/mL (10.0-20.0) Vancomycin Last Dose Date Vancomycin Last Dose Time Test 07/30/19 07:51 07/30/19 11:47 Glucose (Fingerstick) 125 mg/dL (70-99) 80 mg/dL (70-99) Laboratory Tests Test 07/29/19 16:09 07/29/19 21:15 07/30/19 01:45 07/30/19 07:51 Glucose (Fingerstick) 98 mg/dL (70-99) 108 mg/dL (70-99) 125 mg/dL (70-99) Creatinine 0.7 mg/dL (0.6-1.0) Estimated GFR (Cockcroft-Gault) 84.2 Vancomycin Level Trough 18.6 mcg/mL (10.0-20.0) Vancomycin Last Dose Date Vancomycin Last Dose Time Test 07/30/19 11:47 Glucose (Fingerstick) 80 mg/dL (70-99) Brief Hospital Course Ms Lockett 64-year-old female w/ PMHx smoker, DM2, HTN, psoriasis who presents with report of diffuse rash as well as redness, swelling and pain to her right lower leg. Patient has been treated with Bactrim for the last week for cellulitis but it is not improving. Patient states that she noted the diffuse rash a little bit before starting the Bactrim but it has gotten much worse, covering the majority of her body. She denies any chest pain or shortness of breath. She rates pain in that lower leg has moderate. She states that nothing is improving her symptoms She feels that her psoriasis has flared up on her right ankle and she has been pruritic and the redness and warmth appeared last week and she was placed on bactrim after which she developed a fine macular rash that is not pruritic. She had Cr 1.1, lactate 2.1 and AST slightly elevated. Seen by ID, changed to rocephin, then cefdinir with improvement She is feeling minimally improved today. Notes this happens every year. Now notes a very plaque covered rough patch on her middle finger of her right hand, which was the finger she used to apply her salve she gets from the pet store. Problem list: Right ankle Cellulitis - no obvious abscess. She has failed outpatient oral therapy with bactrim. Admitted for IV vancomycin + ancef --> Cefdinir CALVIN - likely vasomotor from nausea associated with bactrim therapy. DM2 - metformin, sliding scale HTN - cont meds Smoker - counseled on cessation, will place nicotine patch Psoriasis - she is using a veterinary itch spray I have advised against this. Vitamin D analogs Plan: Home on cefdinir and elocon cream Discharge Information Condition at Discharge: Improved Follow Up: Weeks (1) Disposition/Orders: D/C to Home Scheduled Cefdinir (Cefdinir) 300 Mg Capsule, 1 CAP PO DAILY for Cellulitis for 10 Days, #10 Prescribed by: SANDRA NELSON MD on 07/30/19 1400 Cholecalciferol (Vitamin D3) (Vitamin D3) 1,000 Unit Tablet, 2 TAB PO BID for medical management, #30 Ref 5 (Reported) Entered as Reported by: MALICK BENITEZ on 06/30/19854 Last Action: Continued on 07/28/19833 by SANDRA NELSON MD Metformin Hcl (Metformin Hcl) 850 Mg Tablet, 850 MG PO TID for ANTI-DIABETIC, Ref 0 (Reported) Entered as Reported by: MALICK BENITEZ on 06/30/19854 Last Action: Continued on 07/28/19833 by SANDRA NELSON MD Mometasone Furoate (Elocon) 15 Gm Cream..g., 1 ZACHARY TP BID for Eczema for 30 Days, #45 Ref 5 Prescribed by: SANDRA NELSON MD on 07/30/19 1400 Multivitamin (Once Daily) 1 Each Tablet, 1 EACH PO DAILY for medical management, (Reported) Entered as Reported by: MALICK BENITEZ on 06/30/19854 Last Action: Converted on 07/28/19833 by SANDRA NELSON MD [place]-3 Fatty Acids/Fish Oil (Fish Oil 1,000 Mg Capsule) 1 Each Capsule, 1 EACH PO BID for medical managment, (Reported) Entered as Reported by: MALICK BENITEZ on 06/30/19854 Last Action: Continued on 07/28/19833 by SANDRA NELSON MD Pioglitazone Hcl (Actos) 45 Mg Tablet, 1 TAB PO DAILY for Diabetes, #30 Ref 5 (Reported) Entered as Reported by: MALICK BENITEZ on 06/30/19854 Last Action: Converted on 07/28/19833 by SANDRA NELSON MD Red Yeast Rice (Red Yeast Rice) 600 Mg Capsule, 600 MG PO DAILY for medical management, #2 (Reported) Entered as Reported by: MALICK BENITEZ on 06/30/19854 Last Action: Converted on 07/28/19833 by SANDRA NELSON MD Vitamin B Complex/Folic Acid (Vitamin B-50 Complex Tablet) 0.4 Mg Tablet, 0.4 MG PO DAILY for medical management, (Reported) Entered as Reported by: MALICK BENITEZ on 06/30/19854 Last Action: Converted on 07/28/19833 by MD LESLIE DÍAZ CHRISTOPHER S MD Jul 30, 2019 14:49
--- NOTE | 2019-07-30 15:18 | NUR ---
Discharge Note: HANNAH WHITTAKER Discharge instructions and discharge home medications reviewed with Patient and a copy given. All questions have been answered and understanding verbalized. The following instructions and handouts were given: Cellulitis Discontinued lines and drains: Peripheral IV intact. Patient discharged to Home or Self Care with Self via Wheelchair
--- NOTE | 2019-07-30 15:21 | NUR ---
Discharge Note: HANNAH WHITTAKER Discharge instructions and discharge home medications reviewed with Patient and a copy given. All questions have been answered and understanding verbalized. The following instructions and handouts were given: Bronchitis Discontinued lines and drains: Port A Cath intact. Patient discharged to Home or Self Care with Family Member via Wheelchair
== END 2019-07-30 15:20 | disposition home or self-care (01) | DRG 602 ==
LOC: ER 18:15 → 5 SOUTH 21:07
PROVIDERS: ADMIT Internal Medicine; ATTEND Internal Medicine
DX: L03.115 Cellulitis of right lower limb (principal); N17.0 Acute kidney failure with tubular necrosis; E11.9 Type 2 diabetes mellitus without complications; I10 Essential (primary) hypertension; L40.9 Psoriasis, unspecified; F17.210 Nicotine dependence, cigarettes, uncomplicated; L29.9 Pruritus, unspecified; E78.5 Hyperlipidemia, unspecified; T36.8X5A Adverse effect of other systemic antibiotics, initial encounter; Z82.49 Family history of ischemic heart disease and other diseases of the circulatory system; Z88.0 Allergy status to penicillin; Z88.7 Allergy status to serum and vaccine; Y92.89 Other specified places as the place of occurrence of the external cause
CPT/HCPCS: 36415; 80048; 80053; 80202; 81001; 82565; 82962; 83605; 85025; 85651; 86140; 87040; 87086; 96365; J0690; J0696; J1650; J1815; J3370; J7040; 99285-25; G0378